=== PATIENT | female | born 1940 | race Caucasian/White ===

== ENCOUNTER → 2017-08-09 | Outpatient (CLI) | payer MEDICARE ==
--- NOTE | 2017-08-09 16:56 | Diagnostic Imaging Report ---
PROCEDURE: L-SPINE COMPLETE COMPARISON: None. INDICATIONS: LOW BACK PAIN, RADIATES TO BOTH HIPS, CHRONIC FINDINGS: 5 views of the lumbar spine (AP, lateral, L5-S1 view, and bilateral obliques Dextroscoliosis of the lumbar spine centered on L2-L3. Vertebral body heights appear maintained. Severe multilevel disc space narrowing throughout the lumbar spine. Moderate facet arthrosis of the lower lumbar spine. Soft tissues are grossly unremarkable. 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 This patient may benefit from an MRI of the lumbar spine. Dictated by: Sony Kat M.D. on 08/09/2017 at 16:56 Electronically approved by: Sony Kat M.D. on 08/09/2017 at 16:56
--- NOTE | 2017-08-09 16:59 | Diagnostic Imaging Report ---
PROCEDURE:HIPS BILAT TWO VWS(+/- PELVIS) INDICATION:Low back pain which radiates to both hips COMPARISON:None. FINDINGS: 2 views of each hip (AP and lateral) and one additional AP view of the pelvis. Mild degenerative changes of both hips. No fracture or dislocation. Degenerative changes also affect the sacroiliac joints and pubic symphysis CONCLUSION: Degenerative changes of the hips. No fracture or dislocation. Dictated by: Sony Kat M.D. on 08/09/2017 at 17:00 Electronically approved by: Sony Kat M.D. on 08/09/2017 at 17:00
== END | disposition home or self-care (01) ==
LOC: RAD 15:58
PROVIDERS: ATTEND Emergency Medicine
DX: M16.0 Bilateral primary osteoarthritis of hip (principal); M47.816 Spondylosis without myelopathy or radiculopathy, lumbar region; M41.9 Scoliosis, unspecified
CPT/HCPCS: 72110; 73521

== ENCOUNTER → 2019-12-13 | Outpatient (CLI) | payer MEDICARE ==
--- NOTE | 2019-12-14 09:40 | Diagnostic Imaging Report ---
EXAM: BONE MINERAL DENSITY HISTORY: Screening COMPARISON: None DISCUSSION: Evaluation of the left hip and lumbar spine was performed utilizing DEXA Hologic bone densitometer. The study is technically adequate. The patient's fracture risk is compared to an age-matched control. The patient denies prior surgery/fracture of the spine, hips or forearm. Images of the lumbar spine reveal significant multilevel sclerotic degenerative change. As a result, lumbar bone density may be overestimated. Left hip femoral neck bone mineral density: 0.887 g/cm2, T-score is 0.3, Z-score is 2.7. Left hip total bone mineral density: 1.098 g/cm2, T-score is 1.3, Z-score is 3.4. Lumbar spine total bone mineral density: 1.526 gm/cm2, T-score is 4.4, Z-score is 7.1. Impression: Bone mineralization by WHO Classification is normal, the fracture risk is not increased. Signed by: Benji Nix MD on 12/14/2019 9:37 AM
== END ==
LOC: DX 11:16
PROVIDERS: ATTEND Emergency Medicine
DX: M85.9 Disorder of bone density and structure, unspecified (principal)
CPT/HCPCS: 77080